=== PATIENT | male | born 1985 | race African-American/Black ===

== ENCOUNTER 2024-08-20 12:31 | Outpatient (CLI) | payer OTHER, SELFPAY ==
--- NOTE | ~2024-08-20 | MR_ITS ---
EXAMINATION: MR shoulder RT w con DATE: 08/20/2024 14:42 INDICATION: Chronic right shoulder pain. TECHNIQUE: Magnetic resonance imaging (MRI) of the right shoulder was performed without intravenous c ontrast after intra-articular injection of contrast (MR arthrogram). COMPARISON: None. FINDINGS: Coracoacromial arch: The acromion undersurface is curved in morphology (type II). There is mild acromioclavicular joint os teoarthritis. There is mild subacromial/subdeltoid bursitis. Rotator cuff: There is mild supraspinatus and infraspinatus tendinopathy. Teres minor tendon is normal. Subscapular is tendon is normal. There is no asymmetric fatty atrophy of the rotator cuff muscle bellies. Biceps tendon and glenoid labrum: Biceps tendon is in bicipital groove. Intra-articular biceps tendon is normal. The glenoid labrum is normal. Fluid: The glenohumeral joint is well distended by contrast. Bones/cartilage: The glenoid cartilage is normal. The humeral head cartilage is normal. IMPRESSION: 1. Mild rotator cuff tendinopathy. No tear. 2. Mild acromioclavicular joint osteoarthritis. 3. Mild subacromial/subdeltoid bursitis. Reviewed, dictated and finalized at location A.
--- NOTE | ~2024-08-20 | XR_ITS ---
[id number] 11/12/11 10:09:00 [id number] ([facility]) : SHOULDER ARTHROGRAM RIGHT 11/12/11 10:09:00 INDICATION: Right shoulder pain. TECHNIQUE: A timeout was performed to verify the patient's name, date of and procedure to be pe rformed. The procedure including the risk and benefits were discussed to the patient. Risk discusse d included bleeding and infection. The patient understood the risk and agreed to proceed. The skin overlying the right glenohumeral joint was prepped and draped in the usual sterile fashion. Anesthetic was administered with 1% lidocaine subcutaneously. A 20 2G needle was advanced under fluoroscopic guidance into the joint. Subsequently, an injectate c onsisting of [12 mL of 2:1:1 mixture of sterile saline; Omnipaque 240; 1% lidocaine; mixed 200:1 with 0.1 mmol/kg Multihance gadolinium contrast] was instilled. The needle removed and the entry site wa s cleaned and dressed. There were no immediate complications. FINDINGS: Real-time fluoroscopy demonstrates the needle and contrast in the right glenohumeral joint. IMPRESSION: 1: Technically successful right glenohumeral joint injection of contrast for subsequent MR arthrogra phy. Reviewed, dictated and finalized at location A. IMPRESSION: 1: Technically successful right glenohumeral joint injection of contrast for s ubsequent MR arthrography.
== END 2024-08-20 12:32 | disposition home or self-care (01) ==
DX: M19.011 Primary osteoarthritis, right shoulder (principal); M75.51 Bursitis of right shoulder
CPT/HCPCS: 23350; 73222; 77002; A9577